=== PATIENT | male | born 1955 | race African-American/Black ===

== ENCOUNTER 2021-02-17 14:40 | Inpatient (IN) | payer OTHER ==
[~2021-02-17] VITALS: Ht 182.9 cm; Wt 127.0 kg
--- NOTE | 2021-02-17 14:40 | NUR ---
PT BIB SELF C/O WEAKNESS/ LIGHT HEADED SINCE FRIDAY. PT IS AAOX4, NOT IN RESPIRATORY DISTRESS, HOOKED TO DIAMOND EXPERT. KEPT RESTED AND COMFORTABLE. WILL CONTINUE TO MONITOR.
--- NOTE | 2021-02-17 15:53 | NUR ---
IV LINE ESTABLISHED BLOOD DRAWN AND SENT TO LAB.
[2021-02-17] MEDS ORDERED: IV NS 0.9% 1,000 ML BAG IV ONE (16:00)
--- NOTE | 2021-02-17 16:02 | NUR ---
URINE SPECIMEN COLLECTED AND SENT TO LAB.
[2021-02-17 16:05] LABS: BASOPHILS % (AUTO) 0.6 % (0.0-2.0); EOSINOPHILS % (AUTO) 0.7 % (0.0-6.0); HEMATOCRIT 42 % (39-51); HEMOGLOBIN 13.8 g/dL (13.5-17.5); LYMPHOCYTES # (AUTO) 2.2 K/uL (0.8-4.8); LYMPHOCYTES % (AUTO) 30.9 % (20.0-44.0); MEAN CORPUSCULAR HGB CONC 33 g/dl (31.0-36.0); MEAN CORPUSCULAR VOLUME 90 fL (80-96); MONOCYTES # (AUTO) 0.5 K/uL (0.1-1.30); MONOCYTES % (AUTO) 7.1 % (2.0-12.0); NEUTROPHILS # (AUTO) 4.4 K/uL (1.8-8.9); NEUTROPHILS % (AUTO) 60.7 % (43.0-81.0); PLATELET COUNT (AUTO) 241 K/uL (150-450); RED BLOOD CELL COUNT(AUTO) 4.61 MIL/uL (4.5-6.0); WHITE BLOOD COUNT (AUTO) 7.3 K/uL (4.3-11.0)
[2021-02-17 16:19] LABS: CALCIUM, SERUM 8.9 mg/dL (8.5-10.1); CARBON DIOXIDE 29 mmol/L (21-32); CHLORIDE 104 mmol/L (98-107); CREATININE 1.3 mg/dL (0.6-1.3); GLUCOSE 114 mg/dL (74-106); POTASSIUM 5.3 mmol/L (3.5-5.1); SODIUM SERUM 142 mmol/L (136-145); UREA NITROGEN, BLOOD 9 mg/dL (7-18)
--- NOTE | 2021-02-17 16:20 | NUR ---
PT IS WHEELED TO CT SCAN VIA [facility].
[2021-02-17 16:24] LABS: ALANINE AMINOTRANSFERASE 45 U/L (12-78); ALBUMIN 3.8 g/dL (3.4-5.0); ALKALINE PHOSPHATASE 70 U/L (46-116); ASPARTATE AMINOTRANSFERASE 53 U/L (15-37); BILIRUBIN,TOTAL 0.4 mg/dL (0.2-1.0); TOTAL PROTEIN, SERUM 8.1 g/dL (6.4-8.2)
[2021-02-17 17:05] LABS: BILIRUBIN,URINE NEGATIVE (NEGATIVE); COLOR,URINE YELLOW (YELLOW); LEUKOCYTE ESTERASE ,URINE NEGATIVE (NEGATIVE); NITRITE, URINE NEGATIVE (NEGATIVE); PROTEIN,URINE 30 mg/dl (NEGATIVE); UGLUCOSE NEGATIVE (NEGATIVE); UROBILINOGEN,URINE 0.2 EU/dL (0.2)
[2021-02-17 17:11] LABS: BACTERIA,URINE Few /HPF (None Seen); WBC,URINE 0-2 /HPF (0-3)
[2021-02-17 17:12] LABS: SQUAMOUS EPITHELIAL CELL,UR Few /HPF (None Seen)
[2021-02-17] MEDS ORDERED: ACETAMINOPHEN ES 500 MG TABLET ONE (17:24)
[2021-02-17] MEDS ORDERED: ASPIRIN 81 MG TAB.CHEW PO ONE (17:30)
[2021-02-17] MEDS ORDERED: ASPIRIN 81 MG TAB.CHEW ONE (17:31)
[2021-02-17] MEDS ORDERED: NIFE90TA61 PO (17:32)
--- NOTE | 2021-02-17 17:40 | NUR ---
CALLED [facility], PAGED DR MEJIA
[2021-02-17] MEDS ORDERED: ACETAMINOPHEN ES 500 MG TABLET PO ONE (18:00)
[2021-02-17] MEDS ORDERED: ENOXAPARIN SODIUM 40 MG/0.4 ML DISP.SYRIN SQ SCH (19:00)
[2021-02-17] MEDS ORDERED: MAG HYDROX/AL HYDROX/SIMETH 30 ML UDC PO PRN (19:00)
[2021-02-17] MEDS ORDERED: MAGNESIUM HYDROXIDE 30 ML UDC PO PRN (19:00)
[2021-02-17] MEDS ORDERED: Z GUARD REMEDY 2 OZ OINT TP PRN (19:00)
[2021-02-17] MEDS ORDERED: ONDANSETRON HCL/PF 4 MG/2 ML VIAL IVP PRN (19:00)
--- NOTE | 2021-02-17 19:24 | NUR ---
TEXTED DR. WOMACK FOR MRI APPROVAL.CONTACT [employer] WILL BE NOTIFIED AFTER WHEN IT IS APPROVED.THEY ARE TRANSPORTATION OFFICER TILL 8.30 / 9PM ONLY.
--- NOTE | 2021-02-17 19:42 | NUR ---
VERIFIED WITH DR. SOUZA REGARDING MRI ORDER. OK TO HAVE THE MRI DONE TOMORROW.
[2021-02-17 20:31] LABS: THYROID STIMULATING HORMONE 2.543 uIU/mL (0.358-3.74)
--- NOTE | 2021-02-17 21:54 | NUR ---
gave report to rkistian Baxter for margaret
[2021-02-17 22:00] VITALS: BP 177/85
[2021-02-17] MEDS ORDERED: SIMVASTATIN 40 MG TABLET PO SCH (22:00)
--- NOTE | 2021-02-17 22:10 | NUR ---
MRSA SWAB COLLECTED AND SENT TO LAB. PATIENT'S BELONGINGS LIST DONE.
[2021-02-17 22:30] VITALS: BP 177/80
--- NOTE | 2021-02-17 22:30 | NUR ---
TELE/RN ADMITTING NOTE RECEIVED REPORT FROM STITCH SEPARATOR IZZY. PATIENT ARRIVED TO UNIT VIA GURNEY AND 2 STAFF MEMBERS. PATIENT BEING ADMITTED FOR CVA. PATIENT IS ALERT AND ORIENTED X 4. ABLE TO MAKE NEEDS KNOWN. DENIES PAIN AT THIS TIME. CONTINUES ON ROOM AIR WITH NO S/SX OF RESPIRATORY DISTRESS NOTED. IV ACCESS TO RIGHT HAND #18G INTACT, PATENT AND SALINE LOCKED. NEURO CHECKS IN PLACE. TELE MONITOR CURRENTLY READING SR/SB HR 58. PATIENT DENIES ANY WEAKNESS OR TINGLING TO EXTREMITIES. NO CHANGE IN LOC NOTED. CONTINUES ON ANTICOAGULANTS. SKIN CHECK PERFORMED ON ADMISSION WITH NO SKIN ISSUES NOTED. PATIENT ORIENTED TO ROOM, CALL LIGHT AND UNIT. CALL LIGHT WITHIN REACH. ASPIRATION, FALL AND SAFETY PRECAUTIONS MAINTAINED. WILL CONTINUE TO MONITOR. Addendum: 02/18/21 at 0615 by ENRRIQUE SHARIF RN RIGHT CHEST WALL DON CATH IN PLACE. S/P CHEMOTHERAPY 05/2020.
--- NOTE | 2021-02-17 23:00 | NUR ---
TELE/RN NOTE PATIENTS BP IS ELEVATED AT 177/80 HR 60. DENIES DIZZINESS, VISUAL CHANGES, HEADACHES OR CHANGE IN LOC. FIELD SCOUT MD SAHA NOTIFIED WITH NEW ORDER FOR PRN HYDRALAZINE. MEDICATION ADMINISTERED WITH PENDING EFFECT.
[2021-02-17] MEDS: hydrALAZINE HCL IV 20 MG VIAL IV PRN (23:52)
[2021-02-17] MEDS: SIMVASTATIN 20 MG TABLET PO SCH (23:57)
[2021-02-18] VITALS: BP 167/84
[2021-02-18 04:00] VITALS: BP 176/90
[2021-02-18] MEDS: hydrALAZINE HCL IV 20 MG VIAL IV PRN ×2 (05:18→18:23)
--- NOTE | 2021-02-18 06:20 | NUR ---
TELE/RN CLOSING NOTE PATIENT CURRENTLY SLEEPING IN BED. ALERT AND ORIENTED X 4. ABLE TO MAKE NEEDS KNOWN. C/O HEADACHE THIS AM - GIVEN PRN TYLENOL WITH GOOD EFFECT. CONTINUES ON ROOM AIR WITH NO S/SX OF RESPIRATORY DISTRESS NOTED. IV ACCESS TO RIGHT HAND #18G INTACT, PATENT AND SALINE LOCKED. PATIENT TO HAVE MRI THIS AM - MRI QUESTIONNAIRE IN CHART. CONTINUES ON NEURO CHECKS WHICH HAS BEEN WNL. CALL LIGHT WITHIN REACH. ASPIRATION, FALL AND SAFETY PRECAUTIONS MAINTAINED. WILL ENDORSE PLAN OF CARE TO ONCOMING SHIFT.
[2021-02-18] MEDS: ACETAMINOPHEN 325 MG TABLET PO PRN ×2 (06:50→20:40)
[2021-02-18 06:53] LABS: BASOPHILS % (AUTO) 0.4 % (0.0-2.0); EOSINOPHILS % (AUTO) 0.8 % (0.0-6.0); HEMATOCRIT 40 % (39-51); HEMOGLOBIN 13.2 g/dL (13.5-17.5); LYMPHOCYTES # (AUTO) 2.2 K/uL (0.8-4.8); LYMPHOCYTES % (AUTO) 33.7 % (20.0-44.0); MEAN CORPUSCULAR HGB CONC 33 g/dl (31.0-36.0); MEAN CORPUSCULAR VOLUME 90 fL (80-96); MONOCYTES # (AUTO) 0.6 K/uL (0.1-1.30); MONOCYTES % (AUTO) 8.8 % (2.0-12.0); NEUTROPHILS # (AUTO) 3.6 K/uL (1.8-8.9); NEUTROPHILS % (AUTO) 56.3 % (43.0-81.0); PLATELET COUNT (AUTO) 240 K/uL (150-450); WHITE BLOOD COUNT (AUTO) 6.5 K/uL (4.3-11.0)
--- NOTE | 2021-02-18 07:20 | NUR ---
RN OPENING NOTE RECEIVED PATIENT IN BED. A/O X4. ON ROOM AIR, SATURATING WELL AT 98%. NO SOB NOTED. IN NO APPARENT DISTRESS. DENIES ANY PAIN OR DISCOMFORT AT THIS TIME. IV ACCESS ON R HAND #18 G, INTACT AND PATENT. RCW PORTACATH C/D/I. SAFETY MEASURES MAINTAINED. BED IN LOWEST POSITION, BRAKES LOCKED. SIDE RAILS UP X2. CALL LIGHT WITHIN REACH. WILL CONTINUE PLAN OF CARE.
[2021-02-18 07:33] LABS: CALCIUM, SERUM 8.8 mg/dL (8.5-10.1); CREATININE 1.3 mg/dL (0.6-1.3); POTASSIUM 4.3 mmol/L (3.5-5.1)
[2021-02-18] MEDS: ASPIRIN EC 325 MG TABLET.DR PO SCH (08:28)
[2021-02-18] MEDS: PANTOPRAZOLE 40 MG TABLET.DR PO SCH (08:28)
--- NOTE | 2021-02-18 18:23 | NUR ---
RN NOTE BP OF 179/93. HYDRALAZINE 0.5 ML IV PRN GIVEN. WILL CONTINUE TO MONITOR THROUGHOUT THE SHIFT.
--- NOTE | 2021-02-18 18:56 | NUR ---
RN CLOSING NOTE PATIENT RESTING IN BED. A/O X4. ON ROOM AIR, SATURATING WELL AT 97%. NO SOB NOTED. NO S/S OF RESPIRATORY DISTRESS. NO REPORTS OF ANY PAIN OR DISCOMFORT AT THIS TIME. IV ACCESS ON R HAND #18 G, INTACT AND PATENT. NO SIGNS OF INFILTRATION. RCW PORTACATH C/D/I. DUE MEDS GIVEN ORDERED. ALL NEEDS HAVE BEEN MET AND ATTENDED. SAFETY MEASURES MAINTAINED. BED IN LOWEST POSITION, BRAKES LOCKED. SIDE RAILS UP X2. CALL LIGHT WITHIN REACH. WILL ENDORSE CONTINUITY OF CARE TO ONCOMING SHIFT.
--- NOTE | 2021-02-18 19:30 | NUR ---
RN OPENING NOTES PATIENT IN BED, EYES CLOSED, EASILY AROUSED. PATIENT IS ABLE TO MAKE NEEDS KNOWN. A/O X 4. NO UNILATERAL WEAKNESS, FACIAL DROOPING FOUND UPON ASSESSMENT. PATIENT IS STABLE ON RA AT THIS TIME. BREATHING EVEN AND UNLABORED. R HAND 18 G SALINE LOCKED, R CW PERMACATH PRESENT. TELE MONITOR READS SR 63 WITH INVERTED T WAVE. SAFETY MEASURES IN PLACE: BED LOCKED AND IN LOWEST POSITION, CALL LIGHT WITHIN REACH, SIDE RAILS UP, BED ALARM ON. WILL MONITOR PATIENT CLOSELY.
[2021-02-18 20:36] VITALS: BP 168/77
--- NOTE | 2021-02-18 20:40 | NUR ---
RN NOTE PATIENT COMPLAINING OF HEADACHE, BP IS ELEVATED WELL. TYLENOL GIVEN TO REDUCE PAIN. WILL RECHECK BP IN AN HOUR AFTER TYLENOL ADMIN.
--- NOTE | 2021-02-18 21:40 | NUR ---
RN NOTE BP IS NOW 151/78, PAIN REDUCED.
[2021-02-18] MEDS: SIMVASTATIN 20 MG TABLET PO SCH (21:50)
[2021-02-18] MEDS: ENOXAPARIN SODIUM 40 MG/0.4 ML DISP.SYRIN SQ SCH (21:51)
[2021-02-18 21:58] VITALS: BP 151/78
[2021-02-19 00:41] VITALS: BP 139/69
[2021-02-19 04:41] VITALS: BP 166/83
[2021-02-19] MEDS: hydrALAZINE HCL IV 20 MG VIAL IV PRN (05:29)
--- NOTE | 2021-02-19 05:35 | NUR ---
RN NOTE hydralazine given for 166/88 BP. HR 62.
--- NOTE | 2021-02-19 06:50 | NUR ---
RN CLOSING NOTES PATIENT'S EYES CLOSED, EASILY AROUSED. PATIENT IS A/O X 4, ABLE TO MAKE NEEDS KNOWN. PATIENT TOLERATING ROOM AIR, BREATHING EVEN AND UNLABORED. TELE MONITOR READS SR/SB 58-61 BPM. PATIENT'S R HAND 18 G REMAINED PATENT AND INTACT, R CW DON CATH PRESENT WELL. BP AT 0630 1 HOUR AFTER HYDRALAZINE ADMIN WAS 158/76 HR 66. NO CHANGES IN PATIENT'S NEURO STATUS. COMPLETED NEURO CHECKS EVERY 4 HOURS. SAFETY MEASURES IMPLEMENTED, ALL NEEDS MET AND ATTENDED, ALL ORDERS CARRIED OUT. WILL ENDORSE TO DAY SHIFT NURSE FOR HENNY.
--- NOTE | 2021-02-19 07:27 | NUR ---
RN OPENING NOTE RECEIVED PATIENT IN BED. A/O X4. ON ROOM AIR. NO SOB NOTED. IN NO APPARENT DISTRESS. PT VERBALIZING HEADACHE, OFFERED A TYLENOL BUT PT REFUSED AT THIS TIME. IV ACCESS ON R HAND #18 G, INTACT AND PATENT. RCW PORTACATH C/D/I. SAFETY MEASURES MAINTAINED. BED IN LOWEST POSITION, BRAKES LOCKED. SIDE RAILS UP X2. CALL LIGHT WITHIN REACH. WILL CONTINUE PLAN OF CARE.
[2021-02-19 08:00] VITALS: BP 160/76
[2021-02-19] MEDS: ASPIRIN EC 325 MG TABLET.DR PO SCH (08:42)
[2021-02-19] MEDS: PANTOPRAZOLE 40 MG TABLET.DR PO SCH (08:42)
--- NOTE | 2021-02-19 10:30 | NUR ---
SS note: SS consult requested for CVA. SS will follow up at a later time.
[2021-02-19 16:00] VITALS: BP 146/68
--- NOTE | 2021-02-19 17:56 | NUR ---
RN CLOSING NOTE PATIENT RESTING IN BED. A/O X4. AMBULATORY WITH WALKER. ON ROOM AIR. NO SOB NOTED. IN NO APPARENT DISTRESS. IV ACCESS ON R HAND #18 G, INTACT AND PATENT. NO SIGNS OF INFILTRATION. RCW PORTACATH C/D/I. SAFETY MEASURES MAINTAINED. BED IN LOWEST POSITION, BRAKES LOCKED. SIDE RAILS UP X2. KEPT CALL LIGHT WITHIN REACH. WILL ENDORSE CONTINUITY OF CARE TO ONCOMING SHIFT.
--- NOTE | 2021-02-19 19:30 | NUR ---
RN OPENING NOTE PATIENT SITTING UP ON THE BED, AWAKE. PATIENT IS A/O X 4. ABLE TO MAKE NEEDS KNOWN. PATIENT IS TOLERATING ROOM AIR BREATHING EVEN AND UNLABORED. PATIENT HAS A R HAND 18 G SALINE LOCKED, PATENT AND INTACT. PATIENT ALSO HAS A R CW PORTACATH PRESENT. PATIENT HAS WALKER AT BEDSIDE WHICH HELPS HIM WITH AMBULATING. SAFETY MEASURES IN PLACE: BED LOCKED AND IN LOWEST POSITION, CALL LIGHT WITHIN REACH, SIDE RAILS UP, BED ALARM ON. WILL MONITOR PATIENT CLOSELY.
[2021-02-19 20:00] VITALS: BP 148/70
[2021-02-19] MEDS: SIMVASTATIN 20 MG TABLET PO SCH (22:50)
[2021-02-19] MEDS: ENOXAPARIN SODIUM 40 MG/0.4 ML DISP.SYRIN SQ SCH (22:51)
--- NOTE | 2021-02-20 07:12 | NUR ---
RN CLOSING NOTE PATIENT IN BED, NO SIGNIFICANT CHANGES TO NEURO STATUS. BREATHING EVEN AND UNLABORED. ENDORSED TO DAY SHIFT NURSE FOR HENNY.
[2021-02-20] MEDS: PANTOPRAZOLE 40 MG TABLET.DR PO SCH (07:48)
--- NOTE | 2021-02-20 07:48 | NUR ---
MS/RN OPENING NOTES RECEIVED PATIENT ON BED SLEEPING EASILY AWAKEN BY NAME AND LIGHT TOUCH. ALERT AND ORIENTED X4. PATIENT IN NO APPARENT RESPIRATORY DISTRESS NOTED. NO COMPLAINED OF PAIN NOTED AT THIS TIME. WILL CONTINUE TO MONITOR.
[2021-02-20 08:00] VITALS: BP 148/76
[2021-02-20] MEDS: ASPIRIN EC 325 MG TABLET.DR PO SCH (08:52)
[2021-02-20] MEDS ORDERED: ASPI-869 PO (10:43)
[2021-02-20] MEDS ORDERED: SIMV-46 PO (10:43)
[2021-02-20] MEDS ORDERED: VALS80TA2 PO (10:43)
[2021-02-20] MEDS ORDERED: VALSARTAN 80 MG TABLET PO SCH (11:00)
[2021-02-20 16:00] VITALS: BP 148/85
--- NOTE | 2021-02-20 16:40 | NUR ---
SS Consult: SS consult completed for code stroke. The pt.is a 65 year old Black male on the medical floor for stroke. The pt. is A&O X 4 and makes good eye contact. The pt. appears well-groomed and mood is WNL. The pt.'s thought process and though content are WNL. Pt. denies SI/HI and denies hallucinations. Pt. states he is able to walk with front wheel walker. Pt. denies having financial assistance. Pt. denies Hx. of mental illness. Pt. denies drug and ETOH use. Pt. states his support system consists of has family and friends. Pt. stated he would like to return home [[id number] [facility]] when ready for D/C. SW provided pt. with stroke empowerment resources and pt. accepted them.
--- NOTE | 2021-02-20 17:36 | NUR ---
RN NOTES PATIENT IS ALERT AND ORIENTED X4. PATIENT IS ON ROOM AIR. PATIENT IN NO APPARENT RESPIRATORY DISTRESS NOTED. NO COMPLAINED OF PAIN NOTED. SEEN AND EXAMINED BY MD WITH ORDERS MADE AND CARRIED OUT. ALL DUE MEDICATIONS WAS GIVEN. DISCHARGED INSTRUCTIONS WAS GIVEN AND PATIENT VERBALIZED UNDERSTANDING. PATIENT LEFT THE HOSPITAL IN MEDICALLY STABLE CONDITION AND SELF CARE HUMAN INSIGHTS LEAD ADS MARKETING BY LIFT CAR.
== END 2021-02-20 17:10 | disposition home health service (06) | DRG 45 ==
LOC: ER 14:42 → TELE 21:48 → MED 02-19 10:14
PROVIDERS: ATTEND Internal Medicine
DX: I63.89 Other cerebral infarction (principal); E66.9 Obesity, unspecified; E78.5 Hyperlipidemia, unspecified; I10 Essential (primary) hypertension; Z20.822 Contact with and (suspected) exposure to COVID-19; Z85.038 Personal history of other malignant neoplasm of large intestine; R42 Dizziness and giddiness; G62.9 Polyneuropathy, unspecified; Z68.38 Body mass index [BMI] 38.0-38.9, adult; R29.700 NIHSS score 0
CPT/HCPCS: 36415; 70450-TC; 71045-TC; 80048-TC; 80061-TC; 80076-TC; 81001; 83880; 84443-TC; 84484-TC; 85025-TC; 85652-TC; 85730-TC; 87081-TC; 92526; 92611-TC; 93307-TC; 93880-TC; 97110-TC; 97116-TC; 97530-TC; C9803; G0378; J0360; J1650; J7030